=== PATIENT | male | born 1970 | race Hispanic/Latino ===

== ENCOUNTER 2017-09-25 21:01 | Observation (INO) | payer SELFPAY ==
[2017-09-25] MEDS ORDERED: Lorazepam 2 MG/ML VIAL ONE (21:30)
[2017-09-25] MEDS ORDERED: Multivitamins, Adult 10 ML, Thiamine HCl 100 MG, Folic Acid 1 MG in Dextrose 5 %-0.45 %... IV SCH (22:00)
[2017-09-25 22:02] LABS: Band 26 % (5-11); Hemoglobin 16.6 g/dL (14.0-18.0); Lymphocytes 5 % (21-51); MDiff Complete? YES; Mean Corpuscular HGB CONC 35.9 g/dL (32.0-36.0); Mean Corpuscular Hemoglobin 33.8 pg (27.0-31.0); Mean Corpuscular Volume 94.1 fL (78.0-98.0); Mean Platelet Volume 8.3 fL (7.4-10.4); Monocytes 9 % (0-10); Neutrophil 60 % (42-75); PLT Morphology Comment Appears Decreased; Platelet Count 108 thou/uL (130-400); RBC Distribution Width 12.3 % (11.5-14.5); Red Blood Cell (RBC) Count 4.92 mill/uL (4.70-6.10); White Blood Cell (WBC) Count 18.2 thou/uL (4.8-10.8)
[2017-09-25 22:03] LABS: ALT (SGPT) 50 U/L (8-55); AST (SGOT) 77 U/L (5-34); Albumin 4.7 g/dL (3.5-5.0); Alkaline Phosphatase 99 U/L (40-150); Anion Gap 31 mmol/L (10-20); BUN (Urea Nitrogen) 50 mg/dL (8.9-20.6); CK (CPK) 3731 U/L (30-200); Calc. Creatinine Clearance 0 mL/min (70-130); Calcium 7.6 mg/dL (7.8-10.44); Carbon Dioxide 34 mmol/L (22-29); Chloride 75 mmol/L (98-107); Estimated GFR-MDRD 18; Globulin 3.1 g/dL (2.4-3.5); Glucose 141 mg/dL (70-105); Potassium 3.1 mmol/L (3.5-5.1); Protein, Total 7.8 g/dL (6.0-8.3); Sodium 137 mmol/L (136-145)
[2017-09-26 00:17] LABS: Bilirubin Large (Negative); Blood, Urine Large (Negative); Clarity TURBID (Clear); Glucose, Urine (Dipstick) Negative (Negative); Leukocyte Trace (Negative); Nitrite Negative (Negative); Protein, Urine (Dipstick) 100 mg/dL (Neg-Trace); Specific Gravity, Urine 1.025 (1.002-1.036)
[2017-09-26 00:23] LABS: Bacteria/HPF None Seen HPF (None Seen)
[2017-09-26 00:25] LABS: Pathc Cast-AUWi Flag 37.79 (0-2.49); Yeast-AUWi Flag 78.6 (0-25.0)
[2017-09-26 00:32] LABS: Renal Epithelial None Seen HPF (0-3); Transitional Epithelial NONE SEEN HPF (0-3); Yeast-All Forms None Seen HPF (None Seen)
[2017-09-26 00:36] LABS: Hyaline Casts/LPF 0-3 HYALINE CAST LPF (0-3 Hyaline); Other Casts/LPF None Seen LPF (0-3 Hyaline)
[2017-09-26 01:16] VITALS: BMI 23.3
[2017-09-26] MEDS ORDERED: Ondansetron PF 4 MG/2 ML Vial IVP PRN (01:29)
[2017-09-26] MEDS ORDERED: Sodium Chloride 0.9% 1,000 ML IV SCH (01:30)
[2017-09-26 01:53] LABS: Amphetamine Not Detected (NotDetected); Barbiturates Screen Not Detected (NotDetected); Benzodiazepine Screen Detected (NotDetected); Cocaine Metabolite Screen Not Detected (NotDetected); Medtox Control Line Valid? VALID (VALID); Medtox Reader # READER 4; Methadone Not Detected (NotDetected); Methamphetamine Not Detected (NotDetected); Opiate Screen Not Detected (NotDetected); Oxycodone Screen Not Detected (NotDetected); Phencyclidine (PCP) Not Detected (NotDetected); THC/Cannabinoid Screen Not Detected (NotDetected); Tricyclic Screen Not Detected (NotDetected)
[2017-09-26] MEDS ORDERED: Nicotine 14 MG PATCH TD SCH (02:00)
--- NOTE | 2017-09-26 03:42 | PDOC.FPRHP ---
- History of Present Illness Chief Complaint: nausea/vom, diaph/ spasms History of Present Illness: 47 yo M with PMH of HTN and alcohol abuse presents to ED with carpopedial spasm , diaphoresis, nausea, vomiting. Pt stated that he normally drinks 3-4 12 oz containers of vodka with sprite daily, maybe more according to his . He says he has done this for the past 7-8 yrs. His last drink was 2-3 days ago. Pt family states that he has not been eating food but only drinking alcohol for about the past week. Patient stated that these symptoms have happened to him twice before, and he had to be hospitalized twice before. Pt smokes 1/2 pack day , has 10 PY history. Denied use of drugs. In the ED he received 2 L NS, ativan 1 mg, and a banana bag. Pt reported feeling much improved. - Allergies/Adverse Reactions Allergies Allergy/AdvReac Type Severity Reaction Status Date / Time No Known Drug Allergies Allergy Verified 09/26/17 01:15 - Home Medications Medication Instructions Recorded Confirmed Type No Known [No Known] 09/26/17 09/26/17 History - History PMHx: HTN, alcohol abuse PSHx: bilateral hernia repair FHx: non contributory Social: smokes 1/2 pack for past 20 yrs, states he hasn't smoked in a week. Drinks heavily: 3-4 12 oz of vodka with sprite per day. Denies drug use. - Review of Systems General: denies: fever/chills, weight/appetite/sleep changes (denied wt changes) ENT: reports: other (+ sore throat). denies: rhinorrhea Respiratory: reports: shortness of breath. denies: cough, congestion, exercise intolerance Cardiovascular: denies: chest pain, palpitation Gastrointestinal: reports: nausea, vomiting. denies: diarrhea, constipation Skin: denies: rashes - Vital signs BP: [] HR: [] RR: [] Tmax: [] Pox: []% on [] Wt: [] - Physical Exam Constitutional: NAD, awake, alert and oriented HEENT: normocephalic and atraumatic, PERRLA Neck: supple, no LAD Heart: RRR, normal S1/S2, no murmurs/rubs/gallops, pulses present Lungs: CTAB, no respiratory distress, good air movement, no rales/rhonchi, no wheezing Abdomen: soft, non-tender, bowel sounds present, no masses/distention Musculoskeletal: normal structure, normal tone Skin: no rash/lesions, good turgor, capillary refill <2 seconds Heme/Lymphatic: no unusual bruising or bleeding Psychiatric: normal mood and affect, other ( poor insight) FMR H&P: Results - Labs Result Diagrams: 09/26/17 03:22 09/26/17 03:22 Lab results: WBC 18.2 thou/uL (4.8-10.8) H 09/25/17 21:32 Hgb 16.6 g/dL (14.0-18.0) 09/25/17 21:32 Hct 46.3 % (42.0-52.0) 09/25/17 21:32 MCV 94.1 fL (78.0-98.0) 09/25/17 21:32 Plt Count 108 thou/uL (130-400) L 09/25/17 21:32 Band Neuts % (Manual) 26 % (5-11) H 09/25/17 21:32 Sodium 137 mmol/L (136-145) 09/25/17 21:32 Potassium 3.1 mmol/L (3.5-5.1) L 09/25/17 21:32 Chloride 75 mmol/L (98-107) L 09/25/17 21:32 Carbon Dioxide 34 mmol/L (22-29) H 09/25/17 21:32 BUN 50 mg/dL (8.9-20.6) H 09/25/17 21:32 Creatinine 3.68 mg/dL (0.6-1.3) H 09/25/17 21:32 Glucose 141 mg/dL (70-105) H 09/25/17 21:32 Calcium 7.6 mg/dL (7.8-10.44) L 09/25/17 21:32 Total Bilirubin 2.0 mg/dL (0.2-1.2) H 09/25/17 21:32 AST 77 U/L (5-34) H 09/25/17 21:32 ALT 50 U/L (8-55) 09/25/17 21:32 Alkaline Phosphatase 99 U/L (40-150) 09/25/17 21:32 Creatine Kinase 3731 U/L (30-200) H 09/25/17 21:32 Serum Total Protein 7.8 g/dL (6.0-8.3) 09/25/17 21:32 Albumin 4.7 g/dL (3.5-5.0) 09/25/17 21:32 Urine Ketones 15 mg/dL (Negative) H 09/26/17 00:02 Urine Blood Large (Negative) H 09/26/17 00:02 Urine Nitrite Negative (Negative) 09/26/17 00:02 Ur Leukocyte Esterase Trace (Negative) H 09/26/17 00:02 Urine RBC 4-6 HPF (0-3) 09/26/17 00:02 Urine WBC 11-20 HPF (0-3) H 09/26/17 00:02 Ur Squamous Epith Cells 11-20 HPF (0-3) H 09/26/17 00:02 Urine Bacteria None Seen HPF (None Seen) 09/26/17 00:02 - EKG Interpretation EKG: sinus tach, QT prolongation FMR H&P: A/P - Problem List (1) Alcohol withdrawal Current Visit: Yes Status: Acute Code(s): F10.239 - ALCOHOL DEPENDENCE WITH WITHDRAWAL, UNSPECIFIED (2) SOPHIE (acute kidney injury) Current Visit: Yes Status: Acute Code(s): N17.9 - ACUTE KIDNEY FAILURE, UNSPECIFIED (3) Hypokalemia Current Visit: Yes Status: Acute Code(s): E87.6 - HYPOKALEMIA (4) Metabolic acidosis Current Visit: Yes Status: Acute Code(s): E87.2 - ACIDOSIS (5) Thrombocytopenia Current Visit: Yes Status: Acute Code(s): D69.6 - THROMBOCYTOPENIA, UNSPECIFIED (6) Alcohol abuse Current Visit: Yes Status: Chronic Code(s): F10.10 - ALCOHOL ABUSE, UNCOMPLICATED (7) Tobacco abuse Current Visit: Yes Status: Chronic Code(s): Z72.0 - TOBACCO USE - Plan 47 yo M with PMH of HTN and alcoholism presents to ED in alcohol withdrawal. Alcohol Withdrawal 2/2 to longstanding alcohol abuse -ASE protocol -Banana bag currently -Start PO multivitamin tomorrow -Monitor electrolytes closely -UDS pending -Received ativan in ED Acute kidney Injury BUN/Cr of 50/3.68, with estimated GFR of 18 -Received 2 NS boluses of 1 L in ED -On MIVF fluids of NS @ 125 -Continue to monitor Metabolic acidosis with anion Gap 31 -UA positive for ketones, patient is probably ketotic from consuming only alcohol recently -follow with BMPs Hypokalemia -K of 3.1 -replace with AM dose of 40 meq PO K Nicotine dependent -PRN patches available Thrombocytopenia -plt 108, continue to monitor. Repeat CBC in AM. Olya Rosa, PGY-1 FMR H&P: Upper Level - Pertinent history 47M presents for alcohol withdrawal. He states he has about 16 oz of vodka daily. He has been eating for the past week. His last alcoholic drink was 4 days ago. He has shakes, vomiting and sweat for the past two days. He has previous withdrawal requiring hospitalization in the past. PMH: HTN PSH: Bilateral inguinal hernia repair Social: Current tobacco abuser .5 pack a day, heavy alcohol use at least 5 drinks a day. Denies drug use. Allergies: NKDA Med: None FH: Noncontributory - Pertinent findings Vitals: BP 121/82, Pulse 95, Resp 16, 96% on RA. Originally was at 116, BP 156/ 88. Gen: Alert, oriented HEENT: Normocephalic. CV: RRR with no apparent m/g/r Resp: CTA bilat GI: Soft, normoactive, without rebound or rigidity or caput medusa Derm: no obvious lesions Ext: No edema - Plan Date/Time: 09/26/17 0342 I, [Behzad Ly], have evaluated this patient and agree with findings/plan as outlined by internal salesperson resident. Pertinent changes/additions are listed here. 1. Alcohol Withdrawal: Symptomatic this time with tremor, sweat and nausea. Start on multivitamin, ASE protocol. Patient has history of alcohol withdrawal before and may be unsafe to discharge with medication for withdrawal. CIWA score 16. Moderate withdrawal. 2. Leukocytosis: Likely inflammatory response to patient's withdrawal. 3. Hypokalemia: Will replace, recheck with daily lab. 4. SOPHIE: Unknown if patient has CKD as no previous record available. Likely caused by dehydration. Plan to start on IV fluid. 5. Elevated Liver Enzyme: Likely secondary alcohol abuse. Sql Application Developer patient on discharge 6. Elevated CK: Likely due to recent dehydration and alcohol abuse. Will treat with IV fluid
[2017-09-26 04:54] LABS: #Lymphocytes 1.5 thou/uL (1.20-3.40); #Monocytes 1.2 thou/uL (0.11-0.59); #Neutrophils 12.7 thou/uL (1.40-6.50); %Basophils 0.1 % (0.0-1.0); %Eosinophils 0.1 % (0.0-10.0); %Lymphocytes 9.9 % (21.0-51.0); %Monocytes 7.6 % (0.0-10.0); %Neutrophils 82.2 % (42.0-75.0); Hemoglobin 13.9 g/dL (14.0-18.0); Mean Corpuscular HGB CONC 35.2 g/dL (32.0-36.0); Mean Corpuscular Hemoglobin 33.9 pg (27.0-31.0); Mean Corpuscular Volume 96.3 fL (78.0-98.0); Platelet Count 78 thou/uL (130-400); RBC Distribution Width 12.2 % (11.5-14.5); Red Blood Cell (RBC) Count 4.12 mill/uL (4.70-6.10); White Blood Cell (WBC) Count 15.5 thou/uL (4.8-10.8)
[2017-09-26 04:57] LABS: BUN (Urea Nitrogen) 45 mg/dL (8.9-20.6); Calc. Creatinine Clearance 52 mL/min (70-130); Calcium 6.9 mg/dL (7.8-10.44); Estimated GFR-MDRD 34; Glucose 111 mg/dL (70-105)
[2017-09-26 05:08] LABS: Chloride 82 mmol/L (98-107); Sodium 137 mmol/L (136-145)
[2017-09-26 05:11] LABS: Anion Gap 25 mmol/L (10-20); Carbon Dioxide 33 mmol/L (22-29)
[2017-09-26 05:13] LABS: Potassium 2.6 mmol/L (3.5-5.1)
--- NOTE | 2017-09-26 05:36 | PDOC.FM ---
- Objective Vital Signs & Weight: Vital Signs (12 hours) Temp Pulse Resp BP BP Pulse Ox 09/26/17 04:05 98.5 F 94 18 129/70 96 09/26/17 04:00 129/70 09/26/17 02:00 135/76 09/26/17 01:16 98.8 F 101 H 18 135/76 97 Weight Weight 82.582 kg I&O: 09/24/17 09/25/17 09/26/17 06:59 06:59 06:59 Output Total 400 Balance -400 Result Diagrams: 09/26/17 03:22 09/26/17 03:22 <Olya Lee - Last Filed: 09/26/17 06:00> - Subjective Subjective: Mr Medina is a 47yo male with pmh of alcohol abuse admitted for alcohol withdrawal. He was vomiting this morning, attempted to eat jello and drinking water. Reports last drink was 3 days ago, he has been hospitalized twice in the past for alcohol withdrawal but denied hx of seizures. Denies fevers, chills, abdominal pain or headache. - Objective MAR Reviewed: Yes Vital Signs & Weight: Vital Signs (12 hours) Temp Pulse Resp BP BP Pulse Ox 09/26/17 04:05 98.5 F 94 18 129/70 96 09/26/17 04:00 129/70 09/26/17 02:00 135/76 09/26/17 01:16 98.8 F 101 H 18 135/76 97 Weight Weight 82.582 kg I&O: 09/24/17 09/25/17 09/26/17 06:59 06:59 06:59 Output Total 400 Balance -400 Result Diagrams: 09/26/17 03:22 09/26/17 10:54 <Ching King - Last Filed: 09/26/17 17:14> Dx/Plan (1) Alcohol withdrawal Code(s): F10.239 - ALCOHOL DEPENDENCE WITH WITHDRAWAL, UNSPECIFIED Status: Acute (2) Alcohol abuse Code(s): F10.10 - ALCOHOL ABUSE, UNCOMPLICATED Status: Chronic (3) Thrombocytopenia Code(s): D69.6 - THROMBOCYTOPENIA, UNSPECIFIED Status: Acute (4) Hypokalemia Code(s): E87.6 - HYPOKALEMIA Status: Acute (5) Metabolic acidosis Code(s): E87.2 - ACIDOSIS Status: Acute (6) Tobacco abuse Code(s): Z72.0 - TOBACCO USE Status: Chronic (7) SOPHIE (acute kidney injury) Code(s): N17.9 - ACUTE KIDNEY FAILURE, UNSPECIFIED Status: Acute - Plan Plan: Alcohol withdrawal - Reported 4 12oz vodka drinks/day, last drink 3-4 days ago - No hx of w/d seizures, continue to monitor - JOCELYN protocol - D/c NS, Start LR @125 - Banana bag daily - hx of heavy consumption with 2 prior episodes of hospitalization for withdrawal - Scheduled Ativan 1mg IV q6h - Ativan 1mg IV PRN - Consulted Dietetics, hadn't eaten in 7 days prior to admission Hypokalmeia - K 2.6 - replacing with 40 IV K - Mg 2.1 - Repeat BMP after replacement Thrombocytopenia - Plts 78 - likely 2/2 to alcohol abuse - Continue to monitor SOPHIE - Cr 3.68-> 2.09 - D/c NS, Start LR @125 Metabolic acidosis 2/2 alcoholic ketoacidosis - Anion gap 22 - Bicarb 33 - D/c NS, Start LR @125 - Continue to monitor Alcohol/Tobacco Abuse - Encourage cessation - Nicotine patch - UDS + for benzos only - RUQ US: fatty liver infiltrate - Check Hep B and Hep C Code Status: FULL DVT ppx: SCDs <Ching King - Last Filed: 09/26/17 17:14>
[2017-09-26] MEDS ORDERED: Lorazepam 0.5 MG TAB PO PRN (05:48)
[2017-09-26] MEDS: Potassium Chloride 20 MEQ in Premix Bag 1 BAG IVPB SCH ×4 (05:50→16:32)
[2017-09-26] MEDS ORDERED: Lorazepam 1 MG TAB PO SCH (06:00)
[2017-09-26] MEDS ORDERED: Nicotine 14 MG PATCH TD PRN (06:05)
[2017-09-26] MEDS: Multivitamin W/ Minerals 1 TAB PO SCH (07:39)
[2017-09-26] MEDS ORDERED: Potassium Chloride 20 MEQ TAB PO SCH (08:00)
[2017-09-26] MEDS ORDERED: Lorazepam 2 MG/ML VIAL SLOW IVP PRN (08:50)
[2017-09-26] MEDS ORDERED: Prevnar 13-Val Conj/PF 0.5 ML SYRINGE IM ONE (09:00)
[2017-09-26] MEDS ORDERED: Calcium Gluconate 4.6 MEQ in Sodium Chloride 0.9% 100 ML IVPB ONE ×2 (09:48→09:49)
[2017-09-26] MEDS: Lactated Ringer's 1,000 ML IV SCH ×2 (11:03→16:34)
[2017-09-26 11:23] LABS: Anion Gap 19 mmol/L (10-20); BUN (Urea Nitrogen) 39 mg/dL (8.9-20.6); Calc. Creatinine Clearance 86 mL/min (70-130); Calcium 7.3 mg/dL (7.8-10.44); Carbon Dioxide 37 mmol/L (22-29); Chloride 84 mmol/L (98-107); Estimated GFR-MDRD 62; Glucose 133 mg/dL (70-105); Potassium 3.2 mmol/L (3.5-5.1); Sodium 137 mmol/L (136-145)
--- NOTE | 2017-09-26 11:27 | ULT ---
RIGHT UPPER QUADRANT ULTRASOUND: Date: 09-26-17 Provided Clinical History: Cirrhosis. FINDINGS: The liver demonstrates increased echogenicity compatible with fatty infiltration. No focal mass or in trahepatic biliary ductal dilatation. Common duct is not dilated. Gallbladder demonstrates no stones, wall thickening, or pericholecystic fluid. Pancreas is largely obscured. Right kidney demonstrates n o hydronephrosis or mass. IMPRESSION: Fatty infiltration of the liver. POS: SERAFIN
[2017-09-26] MEDS ORDERED: Potassium Chloride 20 MEQ in Premix Bag 1 BAG IVPB SCH (12:00)
[2017-09-26] MEDS ORDERED: Potassium Chloride 40 MEQ in Premix Bag 1 BAG IVPB SCH (12:30)
--- NOTE | 2017-09-26 12:54 | HP ---
I have discussed this case with Dr. Olya Lee and agree with her assessment and plan. Mr. Medina is a 47-year-old male with a long history of alcoholism who presented with some c arpopedal spasm, diaphoresis, nausea and vomiting. He quit drinking approximately 3 days ago. He no rmally drinks 3-4 12 ounce containers of vodka with Sprite daily and has so for at least the last dec alisha. He presented with some symptoms consistent with alcoholic withdrawal and has been admitted for observation and treatment. PHYSICAL EXAMINATION: GENERAL: This morning, Mr. Medina appears to be in no distress. He is awake, oriented, and alert. VITAL SIGNS: His blood pressure is 140/80, pulse rate is 88, respirations are 12. He is afebrile. EARS, NOSE AND THROAT: Normocephalic with no outward signs of trauma. NECK: Supple. CARDIAC: Heart rhythm is regular, without gallop or murmur noted. LUNGS: Clear, without rales or wheezes. ABDOMEN: Soft and nontender. No guarding, rebound or rigidity. NEUROLOGIC: He has no focal deficits. LABORATORY DATA: CBC initially showed a white count of 18,200, hemoglobin 16.6, hematocrit is 46.3, and MCV is 94. He has a left shift. Chemistries: Sodium 137, potassium 3.1, chloride 75, bicarb 34 , BUN 50, creatinine initially was 3.68. It is now 1.26. His creatine kinase was 3731. His total b ilirubin was 2.0. His AST is 77. His ALT is 50. Toxicology is positive for benzos, which we have been giving him for his alcoholic withdrawal. His u rine; however, does show large ketones, negative nitrites, large bilirubin, 11-20 white cells. ASSESSMENT: 1. Alcoholism. 2. Alcoholic withdrawal. 3. Alcoholic ketosis. PLAN: Admit, administer ASE protocol, observe carefully. Workup his abnormal LFTs, which in additio n to his alcoholism need to consider fatty liver, hepatitis B, C, etc. Rehydrate and use plenty of b anana bags.
[2017-09-26 14:11] LABS: HBSAB Concentration 0.48 mIU/mL; HBSAg Index 0.24 S/CO (0-0.99); Hep B Core Total Ab Non-Reactive (NonReactive); Hep B Core Total Index 0.12 S/CO (0-0.79); Hep B Surf AB Non-Reactive (NonReactive); Hep B Surf Ag Non-Reactive S/CO (NonReactive); Hep C IgG Ab Non-Reactive (NonReactive); Hep C Index 0.06 S/CO (0-0.79)
[2017-09-27] MEDS: Lactated Ringer's 1,000 ML IV SCH ×3 (00:55→14:10)
[2017-09-27 04:04] LABS: #Eosinphils 0.1 thou/uL (0.0-0.7); #Lymphocytes 2.1 thou/uL (1.20-3.40); #Monocytes 0.8 thou/uL (0.11-0.59); #Neutrophils 4.9 thou/uL (1.40-6.50); %Basophils 0.5 % (0.0-1.0); %Eosinophils 0.7 % (0.0-10.0); %Lymphocytes 26.3 % (21.0-51.0); %Monocytes 10.5 % (0.0-10.0); %Neutrophils 61.9 % (42.0-75.0); Hemoglobin 13.8 g/dL (14.0-18.0); Mean Corpuscular HGB CONC 35.6 g/dL (32.0-36.0); Mean Corpuscular Hemoglobin 34.4 pg (27.0-31.0); Mean Corpuscular Volume 96.5 fL (78.0-98.0); Mean Platelet Volume 8.3 fL (7.4-10.4); Platelet Count 74 thou/uL (130-400); Red Blood Cell (RBC) Count 4.02 mill/uL (4.70-6.10); White Blood Cell (WBC) Count 7.9 thou/uL (4.8-10.8)
[2017-09-27 04:18] LABS: Anion Gap 15 mmol/L (10-20); BUN (Urea Nitrogen) 23 mg/dL (8.9-20.6); CK (CPK) 3149 U/L (30-200); Calc. Creatinine Clearance 133 mL/min (70-130); Calcium 7.6 mg/dL (7.8-10.44); Carbon Dioxide 32 mmol/L (22-29); Chloride 90 mmol/L (98-107); Estimated GFR-MDRD Greater than 90; Glucose 130 mg/dL (70-105); Sodium 134 mmol/L (136-145)
[2017-09-27 04:22] LABS: Potassium 2.7 mmol/L (3.5-5.1)
--- NOTE | 2017-09-27 05:27 | PDOC.FM ---
- Subjective Subjective: Mr Medina is a 47yo male with pmh of alcohol abuse admitted for alcohol withdrawal. No complaints or concerns this morning. Reports being very hungry. Denies fevers, chills, abdominal pain or headache. - Objective MAR Reviewed: Yes Vital Signs & Weight: Vital Signs (12 hours) Temp Pulse Resp BP BP Pulse Ox 09/27/17 00:00 98.9 F 85 16 129/76 129/76 96 09/26/17 20:00 98.3 F 95 20 143/73 H 143/73 H 95 Weight Admit Weight 82.582 kg Weight 82.582 kg I&O: 09/25/17 09/26/17 09/27/17 06:59 06:59 06:59 Intake Total 600 Output Total 400 Balance -400 600 Result Diagrams: 09/27/17 03:34 09/27/17 03:34 Phys Exam - Physical Examination Constitutional: NAD Respiratory: clear to auscultation bilateral Cardiovascular: RRR, no significant murmur Gastrointestinal: soft, non-tender, positive bowel sounds Musculoskeletal: no edema, pulses present Psychiatric: normal affect, A&O x 3 Skin: cap refill <2 seconds Dx/Plan (1) Alcohol withdrawal Code(s): F10.239 - ALCOHOL DEPENDENCE WITH WITHDRAWAL, UNSPECIFIED Status: Acute (2) Alcohol abuse Code(s): F10.10 - ALCOHOL ABUSE, UNCOMPLICATED Status: Chronic (3) Thrombocytopenia Code(s): D69.6 - THROMBOCYTOPENIA, UNSPECIFIED Status: Acute (4) Hypokalemia Code(s): E87.6 - HYPOKALEMIA Status: Acute (5) Metabolic acidosis Code(s): E87.2 - ACIDOSIS Status: Acute (6) Tobacco abuse Code(s): Z72.0 - TOBACCO USE Status: Chronic (7) SOPHIE (acute kidney injury) Code(s): N17.9 - ACUTE KIDNEY FAILURE, UNSPECIFIED Status: Acute - Plan Plan: Alcohol withdrawal - Reported 4 12oz vodka drinks/day, 96 hours since last drink, should be out of window for DTs/seizures - Continue JCOELYN protocol - Increase LR to 200ml/hr due to elevated CK - Banana bag daily - hx of heavy consumption with 2 prior episodes of hospitalization for withdrawal - Ativan 1mg IV PRN - Consulted Dietetics, apprec recs - Ensure Enlive TID - Start Librum taper 25mg QID Hypokalemia - K 2.7 - replacing with 40 IV K - Mg 2.1 - Repeat BMP after replacement Thrombocytopenia - Plts 78 - likely 2/2 to alcohol abuse - Continue to monitor Elevated CK - 3731-> 3149 - Increase LR to 200ml/hr - Repeat CK in AM Hypocalcemia, resolving - 7.6 today SOPHIE, resolved - Increase LR to 200ml/hr Metabolic alkalosis 2/2 Volume depletion - Bicarb 32 - Increase LR to 200ml/hr - Continue to monitor Alcohol/Tobacco Abuse - Encourage cessation - Nicotine patch - UDS + for benzos only - RUQ US: fatty liver infiltrate - Hep B and Hep C panels neg Code Status: FULL DVT ppx: SCDs
[2017-09-27] MEDS: Potassium Chloride 20 MEQ in Premix Bag 1 BAG IVPB SCH ×2 (05:49→08:05)
[2017-09-27 07:10] LABS: ALT (SGPT) 46 U/L (8-55); AST (SGOT) 79 U/L (5-34); Albumin 3.6 g/dL (3.5-5.0); Alkaline Phosphatase 72 U/L (40-150); Bilirubin, Total 1.4 mg/dL (0.2-1.2); Globulin 2.3 g/dL (2.4-3.5); Protein, Total 5.9 g/dL (6.0-8.3)
[2017-09-27] MEDS: Multivitamin W/ Minerals 1 TAB PO SCH (08:05)
[2017-09-27 10:58] VITALS: BP 154/89; TEMP 99.5
[2017-09-27] MEDS: Calcium Gluconate 4.6 MEQ in Sodium Chloride 0.9% 100 ML IVPB SCH ×3 (11:17→14:09)
[2017-09-27] MEDS ORDERED: chlordiazePOXIDE HCl 25 MG CAP PO SCH (12:00)
[2017-09-27 12:27] LABS: Anion Gap 15 mmol/L (10-20); BUN (Urea Nitrogen) 20 mg/dL (8.9-20.6); Calc. Creatinine Clearance 148 mL/min (70-130); Calcium 8.1 mg/dL (7.8-10.44); Carbon Dioxide 29 mmol/L (22-29); Chloride 93 mmol/L (98-107); Estimated GFR-MDRD Greater than 90; Glucose 122 mg/dL (70-105); Potassium 3.1 mmol/L (3.5-5.1); Sodium 134 mmol/L (136-145)
[2017-09-27 12:49] LABS: Hep A IgM AB Non-Reactive (NonReactive); Hep A IgM S/CO 0.18 S/CO (0-0.79)
--- NOTE | 2017-09-27 15:00 | PRG ---
DATE OF SERVICE: 09/27/2017 SUBJECTIVE: This morning, Mr. Medina is completely awake, alert, in no distress. He shows no tremul ousness or anxiety. He is anxious to go home and will go home with his sister who lives here in [facility]. I have encouraged him to continue help through AA, which he states he has attended in the past. His potassium is still low at 2.7 and we are replacing this. I would rather it be above 3 be fore sending him home to continue p.o. treatment of his hypokalemia. His CK is still elevated, but i s coming down and I feel it is safe for discharge as long as he remains well hydrated at home. We an ticipate he will likely be discharged later this afternoon.
--- NOTE | 2017-09-28 01:14 | DIS-2 ---
DATE OF ADMISSION: 09/26/2017 DATE OF DISCHARGE: 09/27/2017 RESIDENT: Ching King, PGY1. ADMITTING ATTENDING: Samuel Capone MD DISCHARGE ATTENDING: Samuel Capone MD CONSULS: None. PROCEDURES: None. PRIMARY DIAGNOSIS: 1. Alcohol withdrawal. SECONDARY DIAGNOSES: 1. Alcohol abuse. 2. Thrombocytopenia. 3. Hypokalemia. 4. Metabolic alkalosis. 5. Tobacco abuse. 6. Acute kidney injury, resolved. DISCHARGE MEDICATIONS: 1. Librium taper starting at 50 b.i.d. over 4 days. 2. Multivitamin. 3. Potassium 20 mEq t.i.d. for 5 days. DISCONTINUED MEDICATIONS: None. HISTORY OF PRESENT ILLNESS AND HOSPITAL COURSE: Mr. Medina is a 47-year-old male with past medical history of alcohol abuse, presenting to the ED with carpopedal spasm and symptoms of alcohol withdrawal. He has drank a handle of vodka a day for the past 7 to 8 years. His last drink had been 3 days prior to admission. His symptoms were controlled with scheduled and PRN Ativan, he was monitored with ASE protocol. He was found to have severe hypokalemia, hypocalcemia, and thrombocytopenia likely secondary to alcohol abuse and malnutrition. Potassium was replaced and he was sent home on 5 days of replacement with plan for outpatient labs in 5-7days. He was discharged with a Librium taper for his alcohol abuse. His chronic medical condition of hypertension was stable throughout his stay and he was continued on his home medications. DISPOSITION: Stable. DISCHARGE INSTRUCTIONS: 1. Location: Home with sister. 2. Diet: Low sodium. 3. Activity: No restrictions. 4. Follow up with [facility] within 7 days of discharge for followup and labs. [facility]ENTERPepper
--- NOTE | 2017-09-29 23:11 | EKG ---
Test Reason : Blood Pressure : / mmHG Vent. Rate : 095 BPM Atrial Rate : 095 BPM P-R Int : 096 ms QRS Dur : 080 ms QT Int : 446 ms P-R-T Axes : 064 073 057 degrees QTc Int : 560 ms Sinus rhythm with short IA Prolonged QT Abnormal ECG When compared with ECG of 25-SEP-2017 21:11, (Unconfirmed) No significant change was found Confirmed by Tayler KRUEGER ([id number]) on 09/29/2017 11:11:23 PM Referred By: BRAYAN Confirmed By:Tayler KRUEGER
--- NOTE | 2017-10-12 14:36 | EKG ---
Test Reason : TACHYCARDIA Blood Pressure : / mmHG Vent. Rate : 115 BPM Atrial Rate : 115 BPM P-R Int : 114 ms QRS Dur : 080 ms QT Int : 394 ms P-R-T Axes : 055 048 068 degrees QTc Int : 545 ms Sinus tachycardia Prolonged QT Abnormal ECG Confirmed by RICHIE BLAND, NELSON Cortez ([id number]), staff editor STANISLAW THOMAS ([id number]) on 10/12/2017 2:36:42 PM Referred By: Confirmed By:NELSON QUIROZ MD
== END 2017-09-27 17:10 | disposition home or self-care (01) ==
LOC: ERS 21:01 → T4-A 09-26 01:10 → INTOOBSV 09-26 01:10
PROVIDERS: ADMIT Family Medicine; ATTEND Family Medicine
DX: F10.239 Alcohol dependence with withdrawal, unspecified (principal); I10 Essential (primary) hypertension; D72.829 Elevated white blood cell count, unspecified; E88.89 Other specified metabolic disorders; D69.6 Thrombocytopenia, unspecified; E87.6 Hypokalemia; E87.3 Alkalosis; N17.9 Acute kidney failure, unspecified; F17.210 Nicotine dependence, cigarettes, uncomplicated; Z79.899 Other long term (current) drug therapy
CPT/HCPCS: 36415; 76705; 80048; 80053; 80306; 81003; 81015; 82550; 83735; 84100; 85025; 86704; 86706; 86708; 86709; 86803; 87340; 90471; 90670; 93005; 93010; 94760; 96365; 96366; 96375; G0009; G0378; J2060; J2405; J3411; J3480; J7042; J7050; J7120